=== PATIENT | male | born 1995 | race Caucasian/White ===

== ENCOUNTER 2019-01-16 06:54 | Emergency (ER) | payer OTHER ==
[~2019-01-16] VITALS: Ht 177.8 cm; Wt 118.4 kg
[2019-01-16 06:56] VITALS: BP 128/77; PULSE 68; RESP 18; Ht 177.8 cm; Wt 118.4 kg
[2019-01-16] MEDS ORDERED: MAGNESIUM CITRATE 300 ML BTL PO ONE (07:30)
[2019-01-16] MEDS ORDERED: IBUPROFEN 600 MG TAB PO ONE (08:30)
--- NOTE | 2019-01-16 09:28 | ERD ---
ER Documentation Chief Complaint Chief Complaint constipation x 5 days HPI This is a very pleasant 23-year-old male presenting to the emergency department with complaints of intermittent constipation for the past 5 days. Patient also reports bloating. He states he typically has 3 normal bowel movements daily, so the symptoms are very unusual for him. Symptoms are moderate to severe. He denies any fevers, chills, or other symptoms at this time. ROS All systems reviewed and are negative except as per history of present illness. Medications Home Meds Active Scripts Docusate Sodium* (Colace*) 100 Mg Capsule, 100 MG PO TID, #30 CAP Prov:FARIDEH GONZALES PA-C 01/16/19 Allergies Allergies: Coded Allergies: No Known Allergy (Unverified , 01/16/19) PMhx/Soc Medical and Surgical Hx: pt denies Medical Hx, pt denies Surgical Hx Hx Alcohol Use: No Hx Substance Use: No Hx Tobacco Use: No Smoking Status: Never smoker FmHx Family History: No diabetes Physical Exam Vitals Vital Signs Date Temp Pulse Resp B/P (MAP) Pulse Ox O2 O2 Flow FiO2 Time Delivery Rate 01/16/19 97.2 68 18 128/77 100 06:56 (94) Physical Exam Const: No acute distress Head: Atraumatic Eyes: Normal Conjunctiva ENT: Normal External Ears, Nose and Mouth. Neck: Full range of motion. No meningismus. Resp: Clear to auscultation bilaterally Cardio: Regular rate and rhythm, no murmurs Abd: Soft, non tender, non distended. Normal bowel sounds. No rebound tenderness or guarding. No McBurney's point tenderness. Skin: No petechiae or rashes Ext: No cyanosis, or edema Neur: Awake and alert Psych: Normal Mood and Affect Results 24 hrs Current Medications Medications Dose Sig/Reese Start Time Status Last (Trade) Ordered Route PRN Stop Time Admin Dose Reason Admin Magnesium 300 ml ONCE ONCE 01/16/19 DC 01/16/19 Citrate PO 07:30 07:38 (Citroma) 01/16/19 07:31 Ibuprofen 600 mg ONCE ONCE 01/16/19 DC 01/16/19 (Motrin) PO 08:30 08:27 01/16/19 08:31 Procedures/MDM 23-year-old male presenting to the emergency department complaining of intermittent constipation for the past 5 days. Physical examination was not concerning for acute surgical abdomen. Patient was administered magnesium citrate without significant relief of symptoms. Due to persistence of symptoms despite treatment, I did order abdominal x-ray. Results interpreted by the radiologist revealed no acute findings. I doubt bowel obstruction. I doubt other emergencies. Patient's gastrointestinal symptoms have stabilized while in the department. No evidence of severe dehydration, sepsis, or surgical abdomen. Extensive discussion with family and patient that occult disease cannot be ruled out. 8 hour recheck for repeat abdominal exam is planned. Departure Diagnosis: Primary Impression: Constipation Condition: Fair Patient Instructions: Constipation (Adult) Additional Instructions: Follow up with your PCP within the next 1-3 days for a repeat evaluation. If you require a referral to a specialist, your Primary Care Provider may be able to provide this for you. In most patient cases, a referral is not required. If you have further questions regarding this matter, please ask your Primary Care Provider. Return the the emergency department immediately if symptoms worsen or change. If you have any questions regarding medications, ask your pharmacist or us before you leave. If any adverse reactions, occur while taking your medications, discontinue the treatment and return to the emergency department immediately. If any new or worsening symptoms, uncontrolled fevers, or other unexplained symptoms occur, return to the emergency department immediately. Take your medications as directed, and complete the entire course of treatment. FARIDEH GONZALES PA-C Jan 16, 2019 09:28
[2019-01-16] MEDS ORDERED: DOCU-144 PO (09:45)
== END 2019-01-16 09:59 | disposition home or self-care (01) ==
LOC: FTE 06:54
DX: K59.00 Constipation, unspecified (principal)
CPT/HCPCS: 74019; Z7502; Z7610